=== PATIENT | female | born 1960 | race African-American/Black ===

== ENCOUNTER → 2017-04-26 | Outpatient (CLI) | payer BC ==
[~2017-04-26] MED LIST: METO25TA9 PO; SPIR25TA3 PO
--- NOTE | 2017-04-28 08:46 | RAD ---
DATE: 04/26/2017 EXAM: DIGITAL SCREEN BILAT W/CAD HISTORY: Routine screening COMPARISON: None available This study was interpreted with the benefit of Computerized Aided Detection (CAD). The breast parenchyma shows scattered fibroglandular densities. Breast parenchyma level B. FINDINGS: No suspicious breast densities are seen. No microcalcifications are evident. Benign-appearing lymph node type densities are present in the axillary regions. IMPRESSION: There is no mammographic evidence of malignancy in either breast. BI-RADS CATEGORY: 1 NEGATIVE RECOMMENDED FOLLOW-UP: 12M 12 MONTH FOLLOW-UP PQRS compliance statement: Patient information was entered into a reminder system with a target due date for the next mammogram. Mammography is a sensitive method for finding small breast cancers, but it does not detect them all and is not a substitute for careful clinical examination. A negative mammogram does not negate a clinically suspicious finding and should not result in delay in biopsying a clinically suspicious abnormality. "Our facility is accredited by the [employer] Mammography [employer]."
== END | disposition home or self-care (01) ==
LOC: MAMMO 09:18
PROVIDERS: ATTEND Family Medicine
DX: Z12.31 Encounter for screening mammogram for malignant neoplasm of breast (principal)
CPT/HCPCS: G0202; 77067

== ENCOUNTER → 2018-01-16 | Outpatient (CLI) | payer BC ==
[2018-01-16] MEDS: IOHEXOL 240 MG/ML 50ML VIAL. PO (11:30)
[2018-01-16] MEDS: IOHEXOL 300 MG/ML 100ML VIAL. IV (11:30)
== END | disposition home or self-care (01) ==
LOC: CT 09:58
DX: D18.03 Hemangioma of intra-abdominal structures (principal); K57.30 Diverticulosis of large intestine without perforation or abscess without bleeding; I10 Essential (primary) hypertension
CPT/HCPCS: 72193; 74170; Q9966; Q9967

== ENCOUNTER → 2018-01-30 | Outpatient (CLI) | payer BC | END | disposition home or self-care (01) | LOC: EKG 11:12 | DX: R00.2 Palpitations (principal); I10 Essential (primary) hypertension | CPT/HCPCS: 93225; 93226 ==

== ENCOUNTER → 2018-01-31 | Outpatient (CLI) | payer BC | END | disposition home or self-care (01) | LOC: KCIC US 09:04 | DX: R59.1 Generalized enlarged lymph nodes (principal) | CPT/HCPCS: 76536 ==

== ENCOUNTER → 2018-10-04 | Outpatient (CLI) | payer BC ==
[~2018-10-04] MED LIST changes: +METO-239 PO; -METO25TA9 PO; -SPIR25TA3 PO; +SPIR25TA5 PO
--- NOTE | 2018-10-04 12:17 | KCIC ---
Bilateral digital screening mammograms with 3-D tomosynthesis: Reason for examination: Routine screening. Comparison is made to previous study dated 04/26/2017. Bilateral mammograms in CC and oblique projections were obtained with 2-D imaging and 3-D tomosynthesis imaging on a Siemens Inspiration unit and reviewed on the workstation. Interpretation was made with the benefit of CAD. The skin and nipples show no abnormalities. No abnormal axillary lymph nodes are seen. The breast parenchyma shows scattered fatty and fibroglandular density. (Breast density: Category B.) There are no dominant masses, suspicious calcifications or architectural distortion. Impression: No evidence of malignancy. Recommend routine screening. BI-RAD Category 1: Negative. "Our facility is accredited by the [employer] Mammography [employer]." This patient's information has been entered into a reminder system for the patient to be notified with the results of her examination and a target date for the next mammogram. Electronically signed by: Felisa Quiros MD (10/04/2018 12:13 PM) [email or web address]
== END | disposition home or self-care (01) ==
LOC: KCIC MAMMO 10:48
PROVIDERS: ATTEND Family Medicine
DX: Z12.31 Encounter for screening mammogram for malignant neoplasm of breast (principal)
CPT/HCPCS: 77063; 77067

== ENCOUNTER → 2019-06-28 | Outpatient (CLI) | payer BC ==
--- NOTE | 2019-06-28 15:00 | KCIC ---
EXAM: Right shoulder, 3 views; chest, 2 views. HISTORY: Pain. COMPARISON: None. FINDINGS: 3 views of the right shoulder and 2 views of the chest are obtained. There is no infiltrate, pleural effusion or pneumothorax. The heart is normal in size. There is minimal glenohumeral spurring. IMPRESSION: No acute pulmonary or osseous finding. Electronically signed by: Karen Killian MD (06/28/2019 2:57 PM) [email or web address]
--- NOTE | 2019-06-28 15:00 | KCIC ---
EXAM: Right shoulder, 3 views; chest, 2 views. HISTORY: Pain. COMPARISON: None. FINDINGS: 3 views of the right shoulder and 2 views of the chest are obtained. There is no infiltrate, pleural effusion or pneumothorax. The heart is normal in size. There is minimal glenohumeral spurring. IMPRESSION: No acute pulmonary or osseous finding. Electronically signed by: Karen Killian MD (06/28/2019 2:57 PM) [facility]
== END | disposition home or self-care (01) ==
LOC: KCIC 12:23
PROVIDERS: ATTEND Family Medicine
DX: M79.621 Pain in right upper arm (principal); M25.511 Pain in right shoulder
CPT/HCPCS: 71046; 73030

== ENCOUNTER → 2020-06-10 | Outpatient (CLI) | payer BC ==
--- NOTE | 2020-06-10 12:21 | KCIC ---
3 views of the bilateral wrists without comparison for chronic bilateral thumb pain. FINDINGS: On the left, there is no fracture, dislocation, or acute osseous abnormality. There is moderate degenerative change of the first carpometacarpal joint. Remaining joints and soft tissues are grossly unremarkable. On the right, once again there is no fracture or acute osseous abnormality however there is advanced osteoarthritis involving the first carpometacarpal joint as well as involving the scaphoid triquetral joint, and there is some adjacent dystrophic soft tissue calcification in this location seen best on lateral view. IMPRESSION: 1. No acute osseous abnormality of either wrist. 2. 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 Electronically signed by: Wilver Frost MD (06/10/2020 12:18 PM) [id number]
--- NOTE | 2020-06-10 13:46 | KCIC ---
2 views of each thumb without comparison for chronic bilateral thumb pain. FINDINGS: On the right there is severe arthritic change involving the first carpometacarpal joint, with more mild changes seen involving the metacarpal phalangeal joint. On the left, there is mild to moderate arthritis involving the first carpometacarpal joint with only minimal degenerative changes seen involving the first metacarpal phalangeal joint. No fracture or acute osseous abnormality involving either thumb. IMPRESSION: 1. Degenerative changes primarily involving the carpometacarpal joints bilaterally, much more severe on the right than the left. Electronically signed by: Wilver Frost MD (06/10/2020 1:43 PM) [email or web address]
== END | disposition home or self-care (01) ==
LOC: KCIC 10:18
PROVIDERS: ATTEND Plastic Surgery
DX: M18.12 Unilateral primary osteoarthritis of first carpometacarpal joint, left hand (principal); M18.11 Unilateral primary osteoarthritis of first carpometacarpal joint, right hand; G89.29 Other chronic pain
CPT/HCPCS: 73110

== ENCOUNTER → 2020-09-16 | Outpatient (CLI) | payer BC ==
--- NOTE | 2020-09-16 14:24 | KCIC ---
EXAM: CT Chest without IV contrast INDICATION: Reason: Interstitial lung disease, sleep apnea, chronic SOA. / Spl. Instructions: / Hist ory: TECHNIQUE: Multi-detector row CT images were acquired from the thoracic inlet through the upper abdo men without the use of IV contrast. Sagittal and coronal images were acquired from the transaxial sherman a. All CT scans performed at this facility utilize dose optimization techniques as appropriate to the exam, including the following: Automated exposure control and adjustment of the mA and/or KV accordi ng to patient size (this includes techniques or standardized protocols for targeted exams where dose is indication/reason for exam). COMPARISON: 06/28/2019 chest x-ray, abdomen and pelvis CT report of 10/10/2015 FINDINGS: There is some respiratory motion artifact that degrades detail. The absence of IV contrast limits evaluation of soft tissue pathology. CARDIOVASCULAR: Unremarkable MEDIASTINUM & SWETHA: No adenopathy or masses. LUNGS: No pulmonary infiltrate, nodule, or other focal abnormality. PLEURAL SPACE: No pleural effusions or pneumothorax. OSSEOUS & SOFT TISSUE: Unremarkable. Incidental left sternalis muscle. ABDOMEN: A 7 cm right hepatic lobe low-density mass is present, shown to be a cavernous hemangioma f rom previous imaging. IMPRESSION: Respiratory motion artifact impacted study showing no significant evidence of interstitial lung disea se. Electronically signed by: Penny Fritz MD (09/16/2020 2:22 PM) [id number]
== END ==
LOC: KCIC CT 09:59
PROVIDERS: ATTEND Internal Medicine Critical Care Medicine
DX: K76.9 Liver disease, unspecified (principal)
CPT/HCPCS: 71250

== ENCOUNTER → 2020-10-29 | Outpatient (CLI) | payer BC ==
[~2020-10-29] MED LIST changes: +AMIT10TA PO; +DOCU-109 PO; +LOSA-73 PO; +MAGN296S68 PO; +METO25TA4 PO; +POLY119P4 PO; +SENN8.6T11 PO
== END ==
LOC: LAB 11:37
PROVIDERS: ATTEND Internal Medicine Gastroenterology
DX: Z01.812 Encounter for preprocedural laboratory examination (principal); Z20.822 Contact with and (suspected) exposure to COVID-19; R10.11 Right upper quadrant pain
CPT/HCPCS: U0003

== ENCOUNTER → 2020-10-31 | Day surgery (SDC) | payer BC ==
[~2020-10-31] MED LIST changes: +IV RINGERS,LACTATED 1000ML 1,000 ML IV SCH; +LIDOCAINE 2% PF 5 ML VIAL. ONE; +PROPOFOL 10 MG/ML (20ML) VIAL. IV ONE
[2020-10-31 10:22] VITALS: BP 121/73
--- NOTE | 2020-11-04 15:09 | PATHOLOGY ---
[facility] Accession Number: [id number] . 01 Material submitted: . colon - RANDOM COLON BIOPSY R/O COLITIS COLLANGENOUS. Modifiers: RANDOM . 01 Clinical history: . R/O COLITIS COLLANGENOUS . 02 Diagnosis: Colonic mucosa, random colon biopsies: - No significant pathologic abnormalities. (JPM:[facility] 11/04/2020) [facility] 11/04/2020 0917 Local . 02 Comment: Sections of the random colon biopsy reveal multiple segments of colonic mucosa containing a few, focally hyperplastic, mucosal-associated lymphoid aggregates. There is no evidence of a chronic destructive colitis, lymphocytic colitis, or collagenous colitis. (JPM:[facility] 11/04/2020) . 02 Electronically signed: . Roberto Lemus MD, Pathologist NPI- [id number] . 01 Gross description: . The specimen is received in formalin, labeled "Lary, Lujuana, random colon BX" and consists of multiple fragments of pink-emmanuel tissue admixed with vegetative material measuring 1.4 x 0.9 x 0.3 cm aggregate which are entirely submitted in A1. (SDY; 11/03/2020) SYU/[facility]U 11/03/2020 1236 Local . 02 Pathologist provided ICD-10: Z03.89 . 02 CPT . 426941 Specimen Comment: A courtesy copy of this report has been sent to [phone] Specimen Comment: Report sent to Performed at: 01 [facility] [address], [place] [id number] MD Kd Pradhan MD Phone: [phone] Performed at: 02 [facility] [address] [place], [place] [id number] MD Roberto Lemus MD Phone: [phone]
== END | disposition home or self-care (01) ==
LOC: SURG 08:06
PROVIDERS: ATTEND Internal Medicine Gastroenterology
DX: R10.11 Right upper quadrant pain (principal); R10.13 Epigastric pain; K29.50 Unspecified chronic gastritis without bleeding; R19.4 Change in bowel habit; K64.0 First degree hemorrhoids; K31.89 Other diseases of stomach and duodenum; K63.89 Other specified diseases of intestine; I10 Essential (primary) hypertension; E11.9 Type 2 diabetes mellitus without complications; F41.9 Anxiety disorder, unspecified; G47.30 Sleep apnea, unspecified; M19.90 Unspecified osteoarthritis, unspecified site; Z90.710 Acquired absence of both cervix and uterus; Z98.890 Other specified postprocedural states; Z79.899 Other long term (current) drug therapy; Z79.84 Long term (current) use of oral hypoglycemic drugs
CPT/HCPCS: 43235; 45380; J2704; 88305

== ENCOUNTER → 2020-11-03 | Outpatient (CLI) | payer BC ==
[2020-10-31 10:22] VITALS: BP 121/73
[~2020-11-03] MED LIST changes: -DOCU-109 PO; -IV RINGERS,LACTATED 1000ML 1,000 ML IV SCH; -LIDOCAINE 2% PF 5 ML VIAL. ONE; -MAGN296S68 PO; -METO25TA4 PO; -POLY119P4 PO; -PROPOFOL 10 MG/ML (20ML) VIAL. IV ONE; -SENN8.6T11 PO; +SINCALIDE 1.54 MCG in IV NORMAL SALINE 50ML 30 ML IV ONE
--- NOTE | 2020-11-03 10:50 | RAD ---
EXAM: Abdomen sonogram. HISTORY: Pain. TECHNIQUE: Sonographic imaging of the abdomen was performed. COMPARISON: None. FINDINGS: The liver is normal in size. There is a solid echogenic lesion within the right hepatic lob e measuring 8.6 cm. The kidneys are unremarkable. The spleen and pancreas are partially obscured due to bowel gas. The aorta is normal in caliber. The inferior vena cava is patent. IMPRESSION: 1. 8.6 cm echogenic lesion within the right hepatic lobe lobe. This corresponds with a hemangioma dem onstrated on a prior CT dated 01/16/2018. The interval increase in size compared to a measurement of [address] may be due to differences in imaging modality. 2. No acute sonographic finding. Electronically signed by: Karen Killian MD (11/03/2020 10:47 AM) [email or web address]
--- NOTE | 2020-11-03 12:40 | RAD ---
EXAM: Nuclear hepatobiliary scan. HISTORY: Pain. TECHNIQUE: Following intravenous administration of 5.5 mCi Tc 99m Choletec, anterior images of the ab domen were obtained at five minute intervals through one hour. Subsequently, 1.54 mg Kinevac was admi nistered and additional images to assess gallbladder ejection fraction were obtained. FINDINGS: There is prompt radiotracer uptake by the liver. No focal defect is seen. There is normal e xcretion into the biliary tree. The gallbladder is visualized within 10 minutes and there is free julia w into the duodenum. The gallbladder ejection fraction is 94 percent. IMPRESSION: Elevated gallbladder ejection fraction of 94 percent. Electronically signed by: Karen Killian MD (11/03/2020 12:37 PM) [email or web address]
== END ==
LOC: US 10:09
PROVIDERS: ATTEND Internal Medicine Gastroenterology
DX: K76.89 Other specified diseases of liver (principal)
CPT/HCPCS: 76700; 78227; A9537; J2805

== ENCOUNTER → 2020-11-18 | Outpatient (CLI) | payer BC ==
[2020-10-31 10:22] VITALS: BP 121/73
[~2020-11-18] MED LIST changes: -SINCALIDE 1.54 MCG in IV NORMAL SALINE 50ML 30 ML IV ONE
--- NOTE | 2020-11-18 13:08 | KCIC ---
EXAM: CT head without contrast INDICATION: Left-sided headache for 2 months. Pain goes down left arm. History of hypertension COMPARISON: None available TECHNIQUE: Axial CT imaging through the head without intravenous contrast. One or more of the following individualized dose reduction techniques were utilized for this examinat ion: 1. Automated exposure control 2. Adjustment of the mA and/or kV according to patient size 3. Use of iterative reconstruction technique. FINDINGS: The ventricles and sulci are normal. Dyer-white matter differentiation is maintained. There is no in tracranial hemorrhage, acute infarct, or mass lesion. Basal cisterns are clear. The calvarium is inta ct. The visualized paranasal sinuses and mastoid air cells are clear. Globes and orbits are intact. IMPRESSION: No acute intracranial abnormality. Electronically signed by: Annie Chaparro MD (11/18/2020 1:05 PM) [id number]
--- NOTE | 2020-11-18 17:48 | KCIC ---
BILATERAL SCREENING MAMMOGRAM, 3-D History: Routine screening. Comparison: Bilateral mammogram October 04, 2018. Technique: MLO and CC digital tomosynthesis (3D) images obtained. Radiologist reviewed these images on dedicated workstation. Findings: Breast Tissue Density B : There are scattered areas of fibroglandular density. There are no dominant masses, suspicious microcalcifications or architectural distortion. IMPRESSION: No mammographic evidence of malignancy. Recommend routine screening. BI-RADS category 1: Negative. The images were reviewed with computer-aided detection. Patient information is entered into reminder system with a target due date for the next screening [facility]. Mammography is the most sensitive method for finding small breast cancers, but it does not detect the m all and is not a substitute for careful clinical examination. A negative mammogram does not negate a clinically suspicious finding and should not result in delay in biopsying a clinically suspicious a bnormality. "Our facility is accredited by the [employer] Mammography Program." Electronically signed by: Justino Horta MD (11/18/2020 5:45 PM) [facility]
== END ==
LOC: KCIC MAMMO 08:23
PROVIDERS: ATTEND Family Medicine
DX: Z12.31 Encounter for screening mammogram for malignant neoplasm of breast (principal); R51.9 Headache, unspecified; Z86.79 Personal history of other diseases of the circulatory system
CPT/HCPCS: 70450; 77063; 77067

== ENCOUNTER → 2020-12-02 | Outpatient (CLI) | payer BC ==
[2020-10-31 10:22] VITALS: BP 121/73
[~2020-12-02] MED LIST changes: +DOCU-109 PO; +MAGN296S68 PO; +METO25TA4 PO; +POLY119P4 PO; +SENN8.6T11 PO
== END ==
LOC: LAB 14:15
PROVIDERS: ATTEND Surgery
DX: Z01.812 Encounter for preprocedural laboratory examination (principal); K82.8 Other specified diseases of gallbladder; Z20.822 Contact with and (suspected) exposure to COVID-19
CPT/HCPCS: U0003

== ENCOUNTER 2020-12-05 11:32 | Observation (INO) | payer BC, MEDICARE ==
[~2020-12-05] VITALS: Ht 162.6 cm; Wt 78.0 kg
[2020-12-05] VITALS (10 sets, daily range): BP systolic 116–151; BP diastolic 52–88
[~2020-12-05 11:32] MED LIST changes: -DOCU-109 PO; +HEPARIN 1,000 UNIT in IV NORMAL SALINE 1,000 ML for SURG PERIOP IRR ONE; +HYDROmorphone 2 MG/ML VIAL IVP PRN; +IV RINGERS,LACTATED 1000ML 1,000 ML IV SCH; -MAGN296S68 PO; +MORPHINE SULFATE 2 MG/ML VIAL. IVP PRN; -POLY119P4 PO; +PROCHLORPERAZINE 10 MG/2 ML VIAL. IVP PRN; -SENN8.6T11 PO; +fentaNYL PF VIAL 100 MCG/2 ML VIAL IVP PRN
[2020-12-05] MEDS ORDERED: fentaNYL PF VIAL 250 MCG/5 ML VIAL ONE (12:41)
[2020-12-05] MEDS ORDERED: LIDOCAINE 2% PF 5 ML VIAL. ONE (12:41)
[2020-12-05] MEDS ORDERED: ROCURONIUM 50 MG/5 ML VIAL. ONE (12:41)
[2020-12-05] MEDS ORDERED: PROPOFOL 10 MG/ML (20ML) VIAL. IV ONE (12:41)
[2020-12-05] MEDS ORDERED: SURGICEL HEMOSTAT 2X14 EACH. ONE (12:53)
[2020-12-05] MEDS ORDERED: IOHEXOL 300 MG/ML 50 ML VIAL. ONE (12:54)
[2020-12-05] MEDS ORDERED: BISACODYL 10 MG SUPP.RECT. ONE (12:54)
[2020-12-05] MEDS ORDERED: BUPIVACAINE-EPI 0.5% 30 ML VIAL KIT. ONE (12:54)
--- NOTE | 2020-12-05 12:56 | PDOC ---
SURGICAL PROGRESS NOTE DATE: 12/05/20 TIME: 12:52 Subjective Pre-op Note 60 yo F with RUQ abd pain, elevated HIDA ejection fraction and large hemangioma. TO OR for laparoscopic versus open cholecystectomy with cholangiogram, evaluation of hemangioma R/R/B/A d/w pt and pt's supportive . Risks, including, but not limited to; bleeding, infection, damage to surrounding structures, risk of anesthesia, risk of open, risk of not resolving her pain. If pain not resolved, will consider hemangioma resection, given large size. They appear to understand, their questions are answered and they elect to proceed. Office note H&P reviewed and unchanged. Vital Signs Vital Signs Date Time Temp Pulse Resp B/P (MAP) Pulse Ox O2 Delivery O2 Flow Rate FiO2 12/05/20 12:35 97.5 79 18 132/66 100 Room Air 97.5 Justicifation of Admission Dx: Justifications for Admission: Justification of Admission Dx: N/A ANGELIA ARGUETA MD Dec 05, 2020 12:56
[2020-12-05] MEDS ORDERED: SEVOFLURANE 61 TO 120 MINUTES. IH ONE (14:09)
[2020-12-05] MEDS ORDERED: ONDANSETRON PF 4 MG/2 ML VIAL. ONE (14:09)
[2020-12-05] MEDS ORDERED: DEXAMETHASONE SOD PHOS 4 MG/ML VIAL ONE (14:09)
[2020-12-05] MEDS ORDERED: KETOROLAC 30 MG/ML VIAL. ONE (14:10)
[2020-12-05] MEDS ORDERED: NEOSTIGMINE METHYLSULFATE 5 MG/5 ML SYRINGE. ONE (14:14)
[2020-12-05] MEDS ORDERED: GLYCOPYRROLATE 1 MG/5 ML VIAL. ONE (14:14)
[2020-12-05] MEDS ORDERED: LABETALOL 20 MG/4 ML DISP.SYRIN. IVP ONE (14:32)
--- NOTE | 2020-12-05 14:48 | RAD ---
EXAM: Intraoperative cholangiogram. HISTORY: Cholecystectomy. Pain. COMPARISON: None. FINDINGS: 3 fluoroscopic images of the abdomen are obtained during an intraoperative cholangiogram. T he images demonstrate contrast opacification of the biliary tree and proximal duodenum. There is no r etained stone or stricture. The total fluoroscopy time is 0.1 minute. IMPRESSION: Intraoperative cholangiogram without evidence of a retained stone or stricture. Electronically signed by: Karen Killian MD (12/05/2020 2:45 PM) [id number]
--- NOTE | 2020-12-05 15:59 | PDOC4 ---
OPERATIVE NOTE Date: Date: Dec 05, 2020 Pre-Op Diagnosis: Biliary dyskinesia, liver hemangioma Post-Op Diagnosis: same, chronic cholecystitis Procedure Performed: laparoscopic cholecystectomy with cholangiogram Surgeon: Anant Argueta Anesthesia Type: GETA plus local Blood Loss: 50 Specimans Obtained: gallbladder Findings: adhesions to gallbladder, grossly normal liver, normal cholangiogram, no other pathology noted. Complications: none Operative Note: After obtaining informed consent, patient was taken to OR, induced under GETA and prepped in the usual fashion. 5 mm port placed umbilical and RUQ, 12 port placed epigastric, all under laparoscopic guidance. Abdominal cavity was explored and noted as above. Hemangioma not readily seen. Gallbladder grasped, adhesions taken down sharply. Gallbladder taken off fossa using cautery in dome down fashion. Cystic artery, anterior and posterior, ligated with clips. Cholangiogram was obtained via only remaining structure, cystic duct, and was normal. Cystic duct ligated with clips and hemolok. Gallbladder placed in bag, delivered and sent to pathology. Copious irrigation. No evidence of bleeding or other pathology noted. Ports removed without bleeding. Fascia repaired with 0 vicryl. Skin repaired with 4 0 monocryl. Dressing placed. Patient tolerated procedure well and sent to PACU in stable condition. All counts correct. Wound class is 3. ANGELIA ARGUETA MD Dec 05, 2020 15:59
[2020-12-05] MEDS: IV NORMAL SALINE 1000ML BAG 1,000 ML IV SCH (16:00)
[2020-12-05] MEDS ORDERED: 0.9 % SODIUM CHLORIDE 10 ML DISP.SYRIN. IV PRN (16:00)
[2020-12-05] MEDS ORDERED: NALOXONE 0.4 MG/ML VIAL. IV PRN (16:00)
[2020-12-05] MEDS: IV RINGERS,LACTATED 1000ML 1,000 ML IV SCH (16:00)
[2020-12-05] MEDS ORDERED: DEXTROSE 50% 25 GM / 50ML DISP.SYRIN. IV PRN (16:00)
[2020-12-05] MEDS ORDERED: MORPHINE SULFATE 2 MG/ML VIAL. IV PRN (16:00)
[2020-12-05] MEDS: ONDANSETRON PF 4 MG/2 ML VIAL. IVP PRN ×2 (17:38→23:31)
[2020-12-05] MEDS: DOCUSATE SODIUM 100 MG CAPSULE. PO SCH (21:08)
[2020-12-05] MEDS: HYDROcodone/APAP 5/325MG 1 TAB TABLET PO PRN (23:31)
[2020-12-06] MEDS: IV RINGERS,LACTATED 1000ML 1,000 ML IV SCH (02:00)
[2020-12-06 03:00] VITALS: BP 136/61
[2020-12-06 07:00] VITALS: BP 111/51
[2020-12-06] MEDS: IV NORMAL SALINE 1000ML BAG 1,000 ML IV SCH (08:10)
[2020-12-06] MEDS: ONDANSETRON PF 4 MG/2 ML VIAL. IVP PRN (08:16)
[2020-12-06] MEDS: DOCUSATE SODIUM 100 MG CAPSULE. PO SCH (08:17)
[2020-12-06] MEDS: HYDROcodone/APAP 5/325MG 1 TAB TABLET PO PRN ×2 (08:17→13:14)
[2020-12-06 11:00] VITALS: BP 115/60
--- NOTE | 2020-12-06 11:20 | PDOC3 ---
Discharge Summary Visit Information Date of Admission: Dec 05, 2020 Date of Discharge: Dec 06, 2020 Admitting Diagnosis: cholecystitis Brief Hospital Course Allergies Allergies Coded Allergies Type Severity Reaction Last Updated Verified No Known Drug Allergies 12/05/20 No Vital Signs Vital Signs Date Time Temp Pulse Resp B/P (MAP) Pulse Ox O2 Delivery O2 Flow Rate FiO2 12/06/20 11:00 98.7 77 18 115/60 (78) 95 Room Air 98.7 12/05/20 15:06 10 Brief Hospital Course Ms. Barth is a 60 old F with right upper quadrant pain. She underwent laparroscopic cholecystectomy yesterday. She reports nausea now resolved. She has mild incisional pain. Assessment Assessment cholecystitis Discharge Information Condition at Discharge: Improved Follow Up: Weeks (2) Disposition/Orders: D/C to Home Scheduled Amitriptyline Hcl (Amitriptyline Hcl) 10 Mg Tablet, 10 MG PO DAILY for sleep, (Reported) Entered as Reported by: MARIOLA SOUZA on 10/31/20827 Last Action: Reviewed on 12/05/202106 by CHACE SULLIVAN RN Losartan Potassium (Losartan Potassium) 50 Mg Tablet, 50 MG PO DAILY for HYPERTENSION, (Reported) Entered as Reported by: MARIOLA SOUZA on 10/31/20827 Last Taken: Unknown Dose on 12/05/20 0800 Last Action: Reviewed on 12/05/202106 by CHACE SULLIVAN RN Metoprolol Tartrate (Metoprolol Tartrate) 25 Mg Tablet, 25 MG PO HS for FOR HYPERTENSION, #60 Ref 0 (Reported) Entered as Reported by: IZZY OCONNELL on 12/02/20 1531 Last Taken: Unknown Dose on 12/04/20 Last Action: Reviewed on 12/05/202106 by CHACE SULLIVAN RN Justicifation of Admission Dx: Justifications for Admission: Justification of Admission Dx: N/A ANGELIA ARGUETA MD Dec 06, 2020 11:20
--- NOTE | 2020-12-06 12:30 | NUR ---
Patient discharged home to family in stable condition. Belongings in room taken with patient.
--- NOTE | 2020-12-06 19:40 | HP ---
ADMIT DATE: 12/06/2020 PHYSICIAN REQUESTING CONSULTATION: Fransisco Duarte. CHIEF COMPLAINT AND HISTORY OF PRESENT ILLNESS: This 60-year-old female status post laparoscopic cholecystectomy yesterday. She is up and around the room, having usual postoperative pain and feeling better. She does have enlarged liver hemangioma and there were concerns about whether this may be part of her pain process and we will see after the cholecystectomy as she did have biliary dyskinesia and was felt to have chronic cholecystitis at the time of surgery. PAST MEDICAL HISTORY: Remarkable for hypertension, diet-controlled diabetes, sleep apnea, headaches and cataracts. MEDICATIONS: Brought with the patient, listed on the computer and have been addressed. ALLERGIES: She has no known drug allergies. FAMILY HISTORY: Noncontributory. REVIEW OF SYSTEMS: As mentioned above. PHYSICAL EXAMINATION: GENERAL: She is well-developed, well-nourished female, in no acute distress. VITAL SIGNS: Stable. She is afebrile. HEAD, EYES, EARS, NOSE AND THROAT: Unremarkable. NECK: Supple, without adenopathy or thyromegaly. CHEST: Clear to auscultation and percussion. HEART: Regular rate and rhythm without S3, S4 or murmur. ABDOMEN: Soft with expected postoperative tenderness. She does have positive bowel sounds. EXTREMITIES: Without cyanosis, clubbing or edema. NEUROLOGIC: She is intact. IMPRESSION: 1. Status post cholecystectomy, doing well. 2. Hypertension. 3. Diet-controlled diabetes. PLAN: Agree with current care. Discharge per Surgery as she seems to be doing well and I think discharge at this point certainly seems reasonable. FLORES ADAMSON MD DR: LIYA/fabián JOB#: [id number] / [id number] BARB Henning MD
[2020-12-07] MEDS ORDERED: SENN8.6T11 PO (19:16)
[2020-12-07] MEDS ORDERED: POLY119P4 PO (19:16)
[2020-12-07] MEDS ORDERED: DOCU-109 PO (19:16)
[2020-12-07] MEDS ORDERED: MAGN296S68 PO (19:16)
== END 2020-12-06 12:30 | disposition home or self-care (01) ==
LOC: SURG 11:32 → 4 NORTH 15:55
PROVIDERS: ADMIT Surgery; ATTEND Surgery
DX: K81.1 Chronic cholecystitis (principal); D18.00 Hemangioma unspecified site; I10 Essential (primary) hypertension; E11.9 Type 2 diabetes mellitus without complications; K81.9 Cholecystitis, unspecified; K82.8 Other specified diseases of gallbladder
CPT/HCPCS: 47563; 74300; 88304; 96361; 96374; 96376; A4213; A4314; A4930; C1887; G0378; G0379; J0690; J1100; J1644; J1885; J2405; J2704; J2710; J3010; J3490; J7030; Q9967

== ENCOUNTER 2020-12-07 17:12 | Emergency (ER) | payer BC, MEDICARE ==
[~2020-12-07] VITALS: Ht 165.1 cm; Wt 77.3 kg
[~2020-12-07 17:12] MED LIST changes: -HEPARIN 1,000 UNIT in IV NORMAL SALINE 1,000 ML for SURG PERIOP IRR ONE; -HYDROmorphone 2 MG/ML VIAL IVP PRN; -IV RINGERS,LACTATED 1000ML 1,000 ML IV SCH; -MORPHINE SULFATE 2 MG/ML VIAL. IVP PRN; -PROCHLORPERAZINE 10 MG/2 ML VIAL. IVP PRN; -fentaNYL PF VIAL 100 MCG/2 ML VIAL IVP PRN
--- NOTE | 2020-12-07 18:18 | PHYS DOC ---
Past Medical History Past Medical History: Diabetes-Type II, High Cholesterol, Hypertension Past Surgical History: Cholecystectomy Smoking Status: Never Smoker Alcohol Use: None General Adult EDM: Chief Complaint: ABDOMINAL PAIN HPI: HPI: Patient is a 60 year old female with a history of diabetes type 2, hypertension, high cholesterol, who presents to the ED today to be evaluated inability to void post surgery. Patient states she had a cholecystectomy done 2 days ago and was discharged from the hospital yesterday. She states since they removed her Shea catheter yesterday she has not been able to void. She states she keeps dribbling small amounts of urine. She states she now feels she has pressure on her lower abdomen. She states she called her own doctor who did the procedure and he ordered antibiotics for her which she is taking. Review of Systems: Review of Systems: Constitutional: Denies fever or chills. [] Eyes: Denies change in visual acuity. [] HENT: Denies nasal congestion or sore throat. [] Respiratory: Denies cough or shortness of breath. [] Cardiovascular: Denies chest pain or edema. [] GI: Reports abdominal pressure, denies nausea, vomiting, bloody stools or diarrhea. [] : Reports anuria. Denies dysuria. [] Musculoskeletal: Denies back pain or joint pain. [] Integument: Denies rash. [] Neurologic: Denies headache, focal weakness or sensory changes. [] Psychiatric: Denies depression or anxiety. [] Heart Score: C/O Chest Pain: N/A Risk Factors: Risk Factors: DM, Current or recent (<one month) smoker, HTN, HLP, family history of CAD, obesity. Risk Scores: Score 0 - 3: 2.5% MACE over next 6 weeks - Discharge Home Score 4 - 6: 20.3% MACE over next 6 weeks - Admit for Clinical Observation Score 7 - 10: 72.7% MACE over next 6 weeks - Early Invasive Strategies Allergies: Allergies: Allergies Coded Allergies Type Severity Reaction Last Updated Verified No Known Drug Allergies 12/05/20 No Physical Exam: PE: Constitutional: Well developed, well nourished, no acute distress, non-toxic appearance. [] HENT: Normocephalic, atraumatic, bilateral external ears normal, oropharynx moist, no oral exudates, nose normal. [] Eyes: PERRLA, EOMI, conjunctiva normal, no discharge. [] Neck: Normal range of motion, no tenderness, supple, no stridor. [] Cardiovascular:Heart rate regular rhythm, no murmur [] Lungs & Thorax: Bilateral breath sounds clear to auscultation [] Abdomen: Patient is sitting on the commode. Laparoscopic incisions from cholecystectomy are intact, bowel sounds normal, soft, no tenderness, no masses, no pulsatile masses. [] Skin: Warm, dry, no erythema, no rash. [] Back: No tenderness, no CVA tenderness. [] Extremities: No tenderness, no cyanosis, no clubbing, ROM intact, no edema. [] Neurologic: Alert and oriented X 3, normal motor function, normal sensory function, no focal deficits noted. [] Psychologic: Affect normal, judgement normal, mood normal. [] Current Patient Data: Vital Signs: Vital Signs Date Time Temp Pulse Resp B/P (MAP) Pulse Ox O2 Delivery O2 Flow Rate FiO2 12/07/20 17:30 98.2 84 18 135/63 (87) 98 Room Air 98.2 EKG: EKG: [] Radiology/Procedures: Radiology/Procedures: [] Course & Med Decision Making: Course & Med Decision Making Pertinent Labs and Imaging studies reviewed. (See chart for details) This is a 60-year-old female patient presented to the ED today complaining of urinary retention after having a cholecystectomy 2 days ago. She had a Shea catheter that was removed yesterday. She has been dribbling urine since then. She is complaining of lower abdominal pressure. She states she already talked to her own surgeon who did the procedure who ordered antibiotics for her, she states the antibiotics are not helping. UA with no acute findings. BVI >700 catheter was placed. Patient was sent home. Instructed to contact the surgeon tomorrow and let him know she had to have a Shea placed. Instructed to return to the ED in 2 days for Shea removal. Dragon Disclaimer: Dragon Disclaimer: This electronic medical record was generated, in whole or in part, using a voice recognition dictation system. Departure Departure Impression: Primary Impression: Postoperative urinary retention Disposition: 01 DC HOME SELF CARE/HOMELESS Condition: STABLE Referrals: Arvin HAMPTON MD (PCP) ANGELIA ARGUETA MD Please call his office tomorrow and let them knwo you had to have a folley angel marco antonio Patient Instructions: Shea Catheter Care, Adult, Urinary Retention, Acute, Female, [id number] Additional Instructions: You were evaluated in the emergency room for urinary retention, we placed a Shea catheter in your bladder. Please come back in 2 days for removal. Please talk to your surgeon tomorrow and let him know we had to place a Shea catheter. You can shower with the catheter. You can wear your normal underwear for the underwear we provided Consider increasing your dietary fiber intake as well as water intake to help manage constipation. Consider taking docusate, Dulcolax, and MiraLAX daily. Consider using magnesium citrate occasionally when you feel constipated. You can also perform an enema if you feel constipated. Scripts Magnesium Citrate (MAGNESIUM CITRATE) 296 Ml Solution 296 ML PO ONCE, #296 ML Prov: BRENNAN ARENAS APRN 12/07/20 Sennosides (SENNA LAXATIVE) 8.6 Mg Tablet 1 TAB PO DAILY for constipation, #30 TAB 0 Refills Prov: BRENNAN ARENAS APRN 12/07/20 Docusate Sodium (COLACE) 100 Mg Capsule 1 CAP PO BID, #60 CAP 0 Refills Prov: BRENNAN ARENAS APRN 12/07/20 Polyethylene Glycol 3350 (MIRALAX) 119 Gm Powder 17 GM PO DAILY for constipation, #255 GM 0 Refills dissolve in water Prov: BRENNAN ARENAS APRN 12/07/20 BRENNAN ARENAS APRN Dec 07, 2020 18:18
[2020-12-07 18:25] LABS: BILIRUBIN,URINE NEGATIVE (NEG); CLARITY,URINE CLEAR; COLOR,URINE YELLOW; NITRITE,URINE NEGATIVE (NEG); PROTEIN,URINE NEGATIVE (NEG-TRACE); UROBILINOGEN,URINE 0.2 mg/dL (0.2 mg/dL)
[2020-12-07 18:31] LABS: BACTERIA,URINE 0 /HPF (0-FEW); RBC,URINE 0 /HPF (0-2); WBC,URINE OCC /HPF (0-4)
[2020-12-07 19:06] VITALS: BP 126/59
[2020-12-07] MEDS ORDERED: MAGNESIUM CITRATE 296 ML SOLUTION. PO ONE (19:15)
[2020-12-07] MEDS ORDERED: MAGN296S68 PO (19:16)
[2020-12-07] MEDS ORDERED: DOCU-109 PO (19:16)
[2020-12-07] MEDS ORDERED: POLY119P4 PO (19:16)
[2020-12-07] MEDS ORDERED: SENN8.6T11 PO (19:16)
== END 2020-12-07 19:35 | disposition home or self-care (01) ==
LOC: ER 17:12
DX: N99.89 Other postprocedural complications and disorders of genitourinary system (principal); R34 Anuria and oliguria; R10.9 Unspecified abdominal pain; E11.9 Type 2 diabetes mellitus without complications; E78.00 Pure hypercholesterolemia, unspecified; I10 Essential (primary) hypertension; Z90.49 Acquired absence of other specified parts of digestive tract
CPT/HCPCS: 51702; 81001; 99284

== ENCOUNTER → 2022-01-07 | Outpatient (CLI) | payer BC, MEDICARE ==
[~2022-01-07] MED LIST changes: +DOCU-109 PO; +MAGN296S68 PO; +POLY119P4 PO; +SENN8.6T11 PO
--- NOTE | 2022-01-07 14:47 | KCIC ---
Bilateral digital screening mammograms with 3-D tomosynthesis: Reason for examination: Routine screening. Comparison is made to previous studies dated back to 04/26/2017. Bilateral mammograms in CC and oblique projections were obtained with 2-D imaging and 3-D tomosynthes is imaging on a Siemens Inspiration unit and reviewed on the workstation. Interpretation was made wit h the benefit of CAD. The skin and nipples show no abnormalities. No abnormal axillary lymph nodes are seen. The breast par enchyma shows scattered fatty and fibroglandular density. (Breast density: Category B.) There are no dominant masses, suspicious calcifications or architectural distortion. Impression: No evidence of malignancy. Recommend routine screening. BI-RAD Category 1: Negative. "Our facility is accredited by the [employer] Mammography Program." This patient's information has been entered into a reminder system for the patient to be notified wit h the results of her examination and a target date for the next mammogram. Electronically signed by: Felisa Quiros MD (01/07/2022 2:45 PM) [id number]
== END ==
LOC: KCIC MAMMO 12:22
PROVIDERS: ATTEND Family Medicine
DX: Z12.31 Encounter for screening mammogram for malignant neoplasm of breast (principal)
CPT/HCPCS: 77063; 77067